=== PATIENT | female | born 1970 | race African-American/Black ===

== ENCOUNTER → 2017-09-03 | Outpatient (CLI) | payer OTHER ==
[~2017-09-03] MED LIST: MULTIVITAMINS
== END ==
LOC: ULTRA 11:20
DX: R92.8 Other abnormal and inconclusive findings on diagnostic imaging of breast (principal)

== ENCOUNTER → 2018-12-01 | Outpatient (CLI) | payer OTHER | LOC: RAD 15:05 | DX: Z12.31 Encounter for screening mammogram for malignant neoplasm of breast (principal) ==

== ENCOUNTER → 2019-10-27 | Outpatient (CLI) | payer OTHER | LOC: ULTRA 08:48 | DX: E04.9 Nontoxic goiter, unspecified (principal) ==

== ENCOUNTER → 2020-04-24 | Outpatient (CLI) | payer OTHER | LOC: RAD 15:41 | PROVIDERS: ATTEND Family Medicine | DX: Z12.31 Encounter for screening mammogram for malignant neoplasm of breast (principal) ==